=== PATIENT | male | born 1980 | race Caucasian/White ===

== ENCOUNTER 2018-03-20 23:28 | Emergency (ER) | payer BC ==
[2018-03-20] MEDS ORDERED: FLUORESCEIN SODIUM 0.6 MG/WRAP ONE (23:48)
[2018-03-20] MEDS ORDERED: TETRACAINE HCL 0.5% 2ML OPTH ONE (23:48)
[2018-03-20] MEDS ORDERED: HYDROCODONE/APAP 5/325 MG TAB ONE (23:58)
--- NOTE | 2018-03-21 00:02 | ER ---
Nurse's Notes [facility] Name: Wily Steele Age: 37 yrs Sex: Male : 1980 Arrival Date: 03/20/2018 Time: 23:30 Bed 12 Private MD: Diagnosis: Ocular pain, left eye Presentation: 03/20 23:49 Presenting complaint: Patient states: he is a contact lens wearer and started having bb left eye pain yesterday. Transition of care: patient was not received from another setting of care. Mechanism of Injury: No Mechanism of Injury. The patient denies any loss of vision. Onset of symptoms was March 20, 2018. Risk Assessment: Do you want to hurt yourself or someone else? Patient reports no desire to harm self or others. Initial Sepsis Screen: Does the patient meet any 2 criteria? No. Patient's initial sepsis screen is negative. Does the patient have a suspected source of infection? No. Patient's initial sepsis screen is negative. Care prior to arrival: None. 23:49 Method Of Arrival: Ambulatory bb 23:49 Acuity: GALLO 4 bb Historical: - Allergies: 23:50 No Known Allergies; bb - Home Meds: 23:50 None [Active]; bb - PMHx: 23:50 None; bb - PSHx: 23:50 None; bb - Immunization history:: Adult Immunizations up to date. - Social history:: Smoking status: Patient uses tobacco products, smokes one-half pack cigarettes per day, Patient uses alcohol, but reports only rare drinking. Patient/guardian denies using street drugs. - Ebola Screening: : No symptoms or risks identified at this time. Screenin:51 Abuse screen: Denies threats or abuse. Nutritional screening: No deficits noted. bb Tuberculosis screening: No symptoms or risk factors identified. Fall Risk None identified. Assessment: 23:51 General: Appears in no apparent distress. Behavior is calm, cooperative. Pain: bb Complains of pain in left eye Pain currently is 9 out of 10 on a pain scale. Pain began 1 day ago. Neuro: Level of Consciousness is awake, alert, obeys commands, Oriented to person, place, time, situation. Cardiovascular: No deficits noted. Respiratory: Respiratory effort is even, unlabored. EENT: Eyes are tearing on left eye Sclera/Cornea are reddened in left eye. Derm: Skin is pink, warm \T\ dry. Musculoskeletal: Circulation, motion, and sensation intact. 03/21 00:13 Reassessment: Patient appears in no apparent distress at this time. Patient is alert, aa1 oriented x 3, equal unlabored respirations, skin warm/dry/pink. Discussed d/c \T\ f/u instructions with pt \T\ spouse; denies questions or concerns at this time Patient states feeling better. Vital Signs: 03/20 23:50 BP 127 / 65; Pulse 56; Resp 16 S; Temp 98(TE); Pulse Ox 96% on R/A; Weight 86.18 kg bb (R); Height 5 ft. 8 in. (172.72 cm) (R); Pain 9/10; 23:50 Body Mass Index 28.89 (86.18 kg, 172.72 cm) bb Visual Acuity: 23:51 Left Eye Visual acuity 20/200, Pupil size 4 mm, ; Right Eye Pupil size 4 mm, ; Both bb Eyes Visual acuity 20/200; Without Lenses; OD CF ED Course: 23:30 Patient arrived in ED. am2 23:37 Bear Suresh, BLANE is PHCP. pm1 23:37 Jon Lindsay MD is Attending Physician. pm1 23:50 Triage completed. bb 23:50 Arm band placed on Patient placed in an exam room, on a stretcher, on pulse oximetry. bb Family accompanied patient. 23:51 Patient has correct armband on for positive identification. Call light in reach. Adult bb w/ patient. Pulse ox on. NIBP on. 23:51 Assist provider with eye exam of left eye. using fluorescein stain, Performed by mendy Suresh SKIDDER LEVER OPERATOR Patient tolerated well. Patient did not have IV access during this emergency room visit. 03/21 00:00 Constantino Hernandez MD is Referral Physician. pm1 Administered Medications: 03/20 23:48 Drug: Tetracaine Drops 0.5 % 1 drops Route: Ophthalmic; Site: left eye; bb 23:48 Drug: Fluorescein Strip 1 strip Route: Ophthalmic; Site: left eye; bb 23:58 Drug: [place] 5 mg-325 mg 1 tabs Route: PO; aa1 03/21 00:02 Follow up: Response: No adverse reaction; Medication administered at discharge. aa1 00:13 Drug: Gentamicin Drops 0.3 % 2 drops Route: Ophthalmic; Site: left eye; aa1 Outcome: 00:01 Discharge ordered by MD. pm1 00:13 Discharged to home ambulatory, with significant other. aa1 00:13 Condition: good 00:13 Discharge instructions given to patient, significant other, Instructed on discharge instructions, follow up and referral plans. medication usage, Demonstrated understanding of instructions, follow-up care, medications, Prescriptions given X 2. 00:16 Patient left the ED. aa1 Signatures: Carolyn Quinteros RN RN aa1 Salma Palafox RN RN Bear Perez NP SKIDDER LEVER OPERATOR pm1 Anju Somers am2
--- NOTE | 2018-03-21 00:02 | EDPHYS ---
Physician Documentation [facility] Name: Wily Steele Age: 37 yrs Sex: Male : 1980 Arrival Date: 03/20/2018 Time: 23:30 Bed 12 Private MD: ED Physician Jon Lindsay HPI: 03/21 00:00 This 37 yrs old Male presents to ER via Ambulatory with complaints of Left pm1 Eye Pain. 00:00 The patient is experiencing foreign body sensation, pain, redness, caused by dust. pm1 Onset: The symptoms/episode began/occurred today, At work. Duration: the symptoms are continuous. Aggravated by closing eye, Alleviated by opening his eye. Associated signs and symptoms: Pertinent negatives: fever, headache. Patient wears soft contacts. Severity of symptoms: in the emergency department the symptoms are worse. The patient has not experienced similar symptoms in the past. 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 Patient with soft contact lens wearing. tetanus less than 5 years. Historical: - Allergies: 03/20 23:50 No Known Allergies; bb - Home Meds: 23:50 None [Active]; bb - PMHx: 23:50 None; bb - PSHx: 23:50 None; bb - Immunization history:: Adult Immunizations up to date. - Social history:: Smoking status: Patient uses tobacco products, smokes one-half pack cigarettes per day, Patient uses alcohol, but reports only rare drinking. Patient/guardian denies using street drugs. - Ebola Screening: : No symptoms or risks identified at this time. ROS: 03/21 00:00 Constitutional: Negative for fever, chills, and weight loss, ENT: Negative for injury, pm1 pain, and discharge. Neck: Negative for injury, pain, and swelling, Cardiovascular: Negative for chest pain, palpitations, and edema, Respiratory: Negative for shortness of breath, cough, wheezing, and pleuritic chest pain, Abdomen/GI: Negative for abdominal pain, nausea, vomiting, diarrhea, and constipation, Back: Negative for injury and pain, MS/Extremity: Negative for injury and deformity, Skin: Negative for injury, rash, and discoloration, Neuro: Negative for headache, weakness, numbness, tingling, and seizure. Eyes: Positive for foreign body sensation, pain, of the left eye. Exam: 00:00 Constitutional: This is a well developed, well nourished patient who is awake, alert, pm1 and in no acute distress. Head/Face: Normocephalic, atraumatic. 00:00 ENT: Nares patent. No nasal discharge, no septal abnormalities noted. Tympanic membranes are normal and external auditory canals are clear. Oropharynx with no redness, swelling, or masses, exudates, or evidence of obstruction, uvula midline. Mucous membranes moist. Neck: Trachea midline, no thyromegaly or masses palpated, and no cervical lymphadenopathy. Supple, full range of motion without nuchal rigidity, or vertebral point tenderness. No Meningismus. Chest/axilla: Normal chest wall appearance and motion. Nontender with no deformity. No lesions are appreciated. Cardiovascular: Regular rate and rhythm with a normal S1 and S2. No gallops, murmurs, or rubs. Normal PMI, no JVD. No pulse deficits. Respiratory: Lungs have equal breath sounds bilaterally, clear to auscultation and percussion. No rales, rhonchi or wheezes noted. No increased work of breathing, no retractions or nasal flaring. Back: No spinal tenderness. No costovertebral tenderness. Full range of motion. Skin: Warm, dry with normal turgor. Normal color with no rashes, no lesions, and no evidence of cellulitis. MS/ Extremity: Pulses equal, no cyanosis. Neurovascular intact. Full, normal range of motion. 00:00 Eyes: Periorbital structures: appear normal, Pupils: no acute changes, Extraocular movements: intact throughout, Conjunctiva: injected, in the left eye, Corneas: abrasion, is not appreciated, on the left, foreign body, is not appreciated, on the left, a fluorescein strip employed to appreciate the findings, Sclera: no appreciated abnormality, Lids and lashes: appear normal. 00:00 Neuro: Orientation: is normal, Motor: moves all fours. Vital Signs: 03/20 23:50 BP 127 / 65; Pulse 56; Resp 16 S; Temp 98(TE); Pulse Ox 96% on R/A; Weight 86.18 kg bb (R); Height 5 ft. 8 in. (172.72 cm) (R); Pain 9/10; 23:50 Body Mass Index 28.89 (86.18 kg, 172.72 cm) bb Visual Acuity: 23:51 Left Eye Visual acuity 20/200, Pupil size 4 mm, ; Right Eye Pupil size 4 mm, ; Both bb Eyes Visual acuity 20/200; Without Lenses; OD CF MDM: 23:38 Patient medically screened. pm1 23:59 Data reviewed: vital signs. Data interpreted: Pulse oximetry: on room air is 96 %. pm1 Interpretation: normal. Counseling: I had a detailed discussion with the patient and/or guardian regarding: the historical points, exam findings, and any diagnostic results supporting the discharge/admit diagnosis, the need for outpatient follow up, an opthalmologist, to return to the emergency department if symptoms worsen or persist or if there are any questions or concerns that arise at home. 03/20 23:48 Order name: Fluoresene Opth strip; Complete Time: 23:48 bb 03/20 23:48 Order name: Eye Tray; Complete Time: 23:48 bb Administered Medications: 23:48 Drug: Tetracaine Drops 0.5 % 1 drops Route: Ophthalmic; Site: left eye; bb 23:48 Drug: Fluorescein Strip 1 strip Route: Ophthalmic; Site: left eye; bb 23:58 Drug: [place] 5 mg-325 mg 1 tabs Route: PO; aa1 03/21 00:02 Follow up: Response: No adverse reaction; Medication administered at discharge. aa1 00:13 Drug: Gentamicin Drops 0.3 % 2 drops Route: Ophthalmic; Site: left eye; aa1 Disposition: 00:46 Co-signature as Attending Physician, Jon Lindsay MD I agree with the assessment and kdr plan of care. Disposition: 03/21/18 00:01 Discharged to Home. Impression: Ocular pain, left eye. - Condition is Stable. - Discharge Instructions: Eye Foreign Body. - Prescriptions for Gentamicin 0.3 % Ophthalmic Drops - instill 1 drop by OPHTHALMIC route every 4 hours for 7 days; 1 bottle. Tylenol- Codeine #3 300-30 mg Oral Tablet - take 1 tablet by ORAL route every 6 hours As needed; 10 tablet. - Medication Reconciliation Form, Thank You Letter, Antibiotic Education form. - Follow up: Constantino Hernandez MD; When: 2 - 3 days; Reason: Recheck today's complaints, Continuance of care, Re-evaluation by your physician. - Problem is new. - Symptoms have improved. Signatures: Carolyn Quinteros RN RN aa1 Jon Lindsay MD MD kdr Salma Palafox RN RN bb Bear Suresh, BLANE STE[employer] pm1 Corrections: (The following items were deleted from the chart) 00:16 00:01 03/21/2018 00:01 Discharged to Home. Impression: Ocular pain, left eye. Condition aa1 is Stable. Forms are Medication Reconciliation Form, Thank You Letter, Antibiotic Education, Prescription Opioid Use. Follow up: Constantino Hernandez; When: 2 - 3 days; Reason: Recheck today's complaints, Continuance of care, Re-evaluation by your physician. Problem is new. Symptoms have improved. pm1
[2018-03-21] MEDS ORDERED: GENTAMICIN 0.3% OPTH DROP 5ML ONE (00:11)
== END 2018-03-21 00:16 | disposition home or self-care (01) ==
LOC: ER 23:28
DX: H57.12 Ocular pain, left eye (principal); F17.210 Nicotine dependence, cigarettes, uncomplicated
CPT/HCPCS: 99284

== ENCOUNTER 2019-04-01 10:22 | Day surgery (SDC) | payer BC ==
[2019-04-01] MEDS: OXYMETAZOLINE HCL 0.05% 15ML NAS ONE ×4 (10:45→13:58)
[2019-04-01] MEDS ORDERED: Ringers Lactate 1,000 ML IV ONE ×2 (10:52→15:42)
[2019-04-01] MEDS ORDERED: PROPOFOL 200 MG/20 ML VIAL IV ONE ×2 (11:48→14:23)
[2019-04-01] MEDS ORDERED: LIDOCAINE 1% MPF 5 ML VIAL ONE (11:48)
[2019-04-01] MEDS ORDERED: NS 0.9% VIAL 10 ML ONE (11:48)
[2019-04-01] MEDS ORDERED: FENTANYL CITR 250 MCG/5 ML ONE (11:48)
[2019-04-01] MEDS ORDERED: MIDAZOLAM HCL 2 MG/2 ML INJ ONE (11:48)
[2019-04-01] MEDS ORDERED: VECURONIUM 10 MG/VIAL IV ONE (11:48)
[2019-04-01] MEDS ORDERED: LIDOCAINE 1% W/EPI 1:100,000 MDV 20 ML VIAL ONE (11:55)
[2019-04-01] MEDS ORDERED: OXYMETAZOLINE HCL 0.05% 15ML NAS ONE (12:06)
[2019-04-01] MEDS ORDERED: EPINEPHRINE/PF 1 MG/ML AMP ONE (12:06)
[2019-04-01] MEDS ORDERED: LIDOCAINE 1.5% W/EPI AMP 5 ML ONE (12:06)
[2019-04-01] MEDS ORDERED: NA CHLORIDE 0.9% 500 ML ONE (12:06)
[2019-04-01] MEDS ORDERED: FENTANYL CITR 100 MCG/2 ML ONE (14:17)
[2019-04-01] MEDS ORDERED: ESMOLOL HCL 10 ML IV ONE (14:28)
[2019-04-01] MEDS ORDERED: GLYCOPYRROLATE 0.2 MG/ML SYR ONE (15:35)
[2019-04-01] MEDS ORDERED: MEPERIDINE HCL 25 MG/0.5 ML ONE (15:35)
[2019-04-01] MEDS ORDERED: LIDOCAINE 2% MPF 5 ML VIAL ONE (15:35)
[2019-04-01] MEDS ORDERED: KETOROLAC 30 MG/ML INJ ONE (15:36)
[2019-04-01] MEDS ORDERED: NEOSTIGMINE 1 MG/ML -10 ML VIAL ONE (15:36)
[2019-04-01] MEDS ORDERED: ONDANSETRON 4 MG/2 ML VIAL ONE (15:36)
[2019-04-01] MEDS ORDERED: HYDROMORPHONE HCL 1 MG/ML INJ ONE (17:13)
[2019-04-01] MEDS ORDERED: TRAMADOL HCL 50 MG TAB ONE (18:07)
--- NOTE | 2019-04-03 09:51 | OP ---
Date of Procedure: 04/01/2019 Surgeon: Rochelle Eli MD Postoperative Diagnoses: Chronic rhinosinusitis with nasal polyps. Postoperative Diagnoses: Chronic rhinosinusitis with nasal polyps. Procedures: Bilateral nasal endoscopy with maxillary antrostomy, total ethmoidectomy, and frontal si nusotomy with use of CT navigation extradural. Indication For Procedure: Mr. Steele presented with symptoms of chronic rhinosinusitis and underwent in-office nasal endoscopy demonstrating nasal polyps. Post-treatment CT scan demonstrated opacifica tion of the left frontal recess, bilateral anterior and posterior ethmoids, mucosal thickening of the bilateral sphenoids, significant opacification of possible polyp of the right maxillary sinus with l imited involvement of the left maxillary sinus and a moderately severe right septal deviation. Risks , benefits, and alternatives were discussed with the patient and his . They agreed to proceed. Description Of Procedure: The patient was brought to the operating room. He was placed under genera l anesthesia via oral endotracheal tube. The head of bed was turned 90 degrees. The patient's nasal hairs were trimmed and the nasal cavity was packed with Afrin-soaked pledgets. The Glam .fr [place] headpie ce was secured to the patient's forehead and the post-treatment CT scan was loaded to the system. Re gistration was performed. The surface matching with the laser pointer and accuracy was confirmed by [id number]-vr-[id number] matching including the base of the columella, the tip of the nose, and the bilateral m edial and lateral canthi as well as the glabella. Accuracy was felt to be very good. The nasal pled gets were removed and a 0 degree endoscope was used to perform nasal endoscopy. The left middle meat us appeared unremarkable without significant polyp or drainage into the middle meatus. The right braulio e appeared more severely inflamed with obvious small polyps and thick mucoid purulent drainage. The right nasal cavity was significantly narrowed due to right septal deviation and the procedure was ini tiated on the left side. A Gifford was used to medialize the middle turbinate and a maxillary seeker w as used to medialize the uncinate process. A backbiter and 90 degree Blakesley were used to remove t he uncinate process and a backbiter and 90 degree Blakesley was used to enlargen the maxillary antros aguila. Within the maxillary sinus, there was severe inspissated mucus which was very thick and stretc hy. The clinical findings were consistent with allergic fungal sinusitis. The removal of the mucin required extensive amount of time suctioning with curved suction tips as well as forceful irrigation with sterile saline to try to loosen and dislodge the debris from the sinus. After removal of the de bris, the mucosal lining of the maxillary sinus was noted to be moderately thickened and the opening around the sinus was significantly edematous. Attention was then turned to the ethmoid sinuses. The straight and curved navigation suctions were used during the dissection of the ethmoids in order to identify the lamina and skull base and allow safer and more thorough dissection. Ethmoid partitions were divided using the curette and removed with straight, 45, and 90 degree Blakesleys until the ethm oid was well dissected. Identification of the frontal sinus was made and partitions involving the fr ontal recess were removed using the otuzf-re-ngwe and ydkj-iu-lukf Giraffe under 70 degree scope visu alization. Polyps within the sphenoethmoid recess were removed using a 45 degree Blakesley. Overall , the lining of the sinuses was significantly inflamed and intermittent packing of the sinus cavity w ith Afrin soaked pledgets was required to allow for adequate visualization of the sinus cavities. Af ter completion of the left side, evaluation was made on the right. The septum was deviated to the de gree that limited access into the sinus cavities and decision was made to proceed with a septoplasty. The anterior septum was injected with local anesthetic and a left hemitransfixion incision was made . The caudal aspect of this septum was identified and bilateral mucosal flaps were elevated. The po sterior aspect of the cartilaginous septum was incised using a [place] elevator and small portion of c artilage was removed. The deviated bony portion of the septum was then removed using Garett rongeur trimming small pieces as necessary in order to allow for adequate space creation of the right nasal c avity. After removal of a portion of the bone septum, the septal cavity was packed with Afrin-soaked pledgets for several minutes. These were then removed and examination of the right nasal airway rev ealed adequate space. Closure of the septum was deferred. The endoscopic portion of the procedure w as then resumed. The right maxillary antrostomy was created by removal of the uncinate process. Thi ck copious purulent secretions were noted and a culture was collected including aerobic and anaerobic and sent to the lab for micro examination. After creation of the antrostomy with removal of bone an d soft tissue, the right maxillary sinus was visualized using 30 and 70 degree scopes, the lining was noted to be severely edematous and after forceful irrigation, no visible purulence or residual debri s was noted. Attention was then turned to the right ethmoid. The ethmoid partitions were dissected and removed using a curette and Blakesley forceps. The mucosa again was polypoid and edematous. Ove rall findings were worse than the CT in terms of degree of inflammation. After careful dissection in cluding use of the navigation suction for identification of the lamina and the skull base, the fronta l recess was identified and dissected using a 90 degree Giraffe and 70 degree endoscope. The sinus c avities were thoroughly irrigated and suctioned. Decision was made for placement of steroid eluting stents due to the presence of polyps and overall degree of inflammation. A Propel mini was placed in the bilateral frontal recess under endoscopic guidance. A standard Propel was placed in the ethmoid cavity. Attention was then return to the septum. After confirmation of removal of all pledgets and nonabsorbable nasal packing, the septum was closed in running fashion along the hemitransfixion inci mario and mattressing suture was placed. The nasopharynx was suctioned. The patient was returned to care of Anesthesia for awakening and extubation in the operating room, which proceeded without diffic ulty. Complications: None. Disposition: The patient will be discharged home later today and follow up with Dr. Eli in appro ximately 10 to 14 days for evaluation of healing. KATLYN/MIKE Voice ID: [id number] Report ID: [id number]
== END 2019-04-01 18:30 | disposition home or self-care (01) ==
LOC: OR 10:22
PROVIDERS: ATTEND Otolaryngology
PROC: 09BQ8ZZ Excision of Right Maxillary Sinus, Via Natural or Artificial Opening Endoscopic (ICD-10-PCS; 2019-04-01)
PROC: 09BR8ZZ Excision of Left Maxillary Sinus, Via Natural or Artificial Opening Endoscopic (ICD-10-PCS; 2019-04-01)
PROC: 09BS8ZZ Excision of Right Frontal Sinus, Via Natural or Artificial Opening Endoscopic (ICD-10-PCS; 2019-04-01)
PROC: 09BT8ZZ Excision of Left Frontal Sinus, Via Natural or Artificial Opening Endoscopic (ICD-10-PCS; 2019-04-01)
PROC: 09BU8ZZ Excision of Right Ethmoid Sinus, Via Natural or Artificial Opening Endoscopic (ICD-10-PCS; 2019-04-01)
PROC: 8E09XBG Computer Assisted Procedure of Head and Neck Region, With Computerized Tomography (ICD-10-PCS; 2019-04-01)
PROC: 09SM0ZZ Reposition Nasal Septum, Open Approach (ICD-10-PCS; 2019-04-01)
PROC: 8E09XBZ Computer Assisted Procedure of Head and Neck Region (ICD-10-PCS; principal; 2019-04-01 12:00)
PROC: 09BV8ZZ Excision of Left Ethmoid Sinus, Via Natural or Artificial Opening Endoscopic (ICD-10-PCS; 2019-04-01 12:00)
DX: J32.0 Chronic maxillary sinusitis (principal); J32.2 Chronic ethmoidal sinusitis; J32.1 Chronic frontal sinusitis; J33.9 Nasal polyp, unspecified; J34.2 Deviated nasal septum; F17.200 Nicotine dependence, unspecified, uncomplicated
CPT/HCPCS: 88304; 88311; J0171; J1170; J2001; J2175; J2250; J2405; J2704; J2710; J3010

== ENCOUNTER 2019-04-02 04:54 | Emergency (ER) | payer BC ==
--- NOTE | 2019-04-02 05:31 | EDPHYS ---
Physician Documentation [facility] Name: Wily Steele Age: 38 yrs Sex: Male : 1980 Arrival Date: 04/02/2019 Time: 04:57 Bed 5 Private MD: Isaac Gasca ED Physician Daniel Fox HPI: 04/02 05:26 This 38 yrs old Male presents to ER via Ambulatory with complaints of Urinary ana Retention. 05:26 The patient presents with urinary symptoms, unable to void. Onset: The symptoms/episode ana began/occurred yesterday, last night. Modifying factors: The symptoms are alleviated by nothing, the symptoms are aggravated by nothing. Associated signs and symptoms: The patient has no apparent associated signs or symptoms. Severity of symptoms: At their worst the symptoms were mild, moderate, in the emergency department the symptoms are unchanged. The patient has not experienced similar symptoms in the past. Historical: - Allergies: 05:10 No Known Allergies; rr5 - Home Meds: 05:10 None [Active]; rr5 - PMHx: 05:10 None; rr5 - PSHx: 05:10 sinus surgery; deviated septum; rr5 - Immunization history:: Adult Immunizations up to date. - Social history:: Smoking status: Patient/guardian denies using tobacco, Patient/guardian denies using alcohol, street drugs. - Ebola Screening: : Patient negative for fever greater than or equal to 101.5 degrees Fahrenheit, and additional compatible Ebola Virus Disease symptoms Patient denies exposure to infectious person Patient denies travel to an Ebola-affected area in the 21 days before illness onset. - Family history:: not pertinent. ROS: 05:26 Constitutional: Negative for fever, chills, and weight loss, Eyes: Negative for injury, ana pain, redness, and discharge, ENT: Negative for injury, pain, and discharge, Neck: Negative for injury, pain, and swelling, Cardiovascular: Negative for chest pain, palpitations, and edema, Respiratory: Negative for shortness of breath, cough, wheezing, and pleuritic chest pain, Abdomen/GI: Negative for abdominal pain, nausea, vomiting, diarrhea, and constipation, Back: Negative for injury and pain, MS/Extremity: Negative for injury and deformity, Skin: Negative for injury, rash, and discoloration, Neuro: Negative for headache, weakness, numbness, tingling, and seizure, Psych: Negative for depression, anxiety, suicide ideation, homicidal ideation, and hallucinations, Allergy/Immunology: Negative for hives, rash, and allergies, Endocrine: Negative for neck swelling, polydipsia, polyuria, polyphagia, and marked weight changes, Hematologic/Lymphatic: Negative for swollen nodes, abnormal bleeding, and unusual bruising. 05:26 : Positive for small amounts, burning with urination, difficulty urinating. Exam: 05:26 Constitutional: This is a well developed, well nourished patient who is awake, alert, ana and in no acute distress. Head/Face: Normocephalic, atraumatic. Eyes: Pupils equal round and reactive to light, extra-ocular motions intact. Lids and lashes normal. Conjunctiva and sclera are non-icteric and not injected. Cornea within normal limits. Periorbital areas with no swelling, redness, or edema. ENT: Nares patent. No nasal discharge, no septal abnormalities noted. Tympanic membranes are normal and external auditory canals are clear. Oropharynx with no redness, swelling, or masses, exudates, or evidence of obstruction, uvula midline. Mucous membranes moist. Neck: Trachea midline, no thyromegaly or masses palpated, and no cervical lymphadenopathy. Supple, full range of motion without nuchal rigidity, or vertebral point tenderness. No Meningismus. Chest/axilla: Normal chest wall appearance and motion. Nontender with no deformity. No lesions are appreciated. Cardiovascular: Regular rate and rhythm with a normal S1 and S2. No gallops, murmurs, or rubs. Normal PMI, no JVD. No pulse deficits. Respiratory: Lungs have equal breath sounds bilaterally, clear to auscultation and percussion. No rales, rhonchi or wheezes noted. No increased work of breathing, no retractions or nasal flaring. Abdomen/GI: Soft, non-tender, with normal bowel sounds. No distension or tympany. No guarding or rebound. No evidence of tenderness throughout. Back: No spinal tenderness. No costovertebral tenderness. Full range of motion. Male : Normal genitalia with no discharge or lesions. Skin: Warm, dry with normal turgor. Normal color with no rashes, no lesions, and no evidence of cellulitis. Neuro: Awake and alert, GCS 15, oriented to person, place, time, and situation. Cranial nerves II-XII grossly intact. Motor strength 5/5 in all extremities. Sensory grossly intact. Cerebellar exam normal. Normal gait. Psych: Awake, alert, with orientation to person, place and time. Behavior, mood, and affect are within normal limits. 05:26 : CVA tenderness, that is mild, Male external genitalia: normal, Circumcision noted. Bladder: distension. 05:26 Musculoskeletal/extremity: Vital Signs: 05:10 BP 119 / 69; Pulse 85; Resp 19; Temp 98.2; Pulse Ox 97% ; Weight 91.63 kg; Height 5 ft. rr5 9 in. (175.26 cm); 05:10 Pain 5/10; rr5 05:53 BP 119 / 71; Pulse 80; Resp 16; Pulse Ox 99% ; Pain 0/10; rr5 05:10 Body Mass Index 29.83 (91.63 kg, 175.26 cm) rr5 MDM: 05:03 Patient medically screened. [facility] 05:29 Data reviewed: vital signs, nurses notes, lab test result(s). [facility] 04/02 05:26 Order name: Urine Culture [facility] 04/02 05:38 Order name: Urine Dipstick--Ancillary (enter results) [facility] 04/02 05:26 Order name: Urine Dipstick-Ancillary (obtain specimen); Complete Time: 05:42 [facility] 04/02 05:26 Order name: Olivier; Complete Time: 05:42 [facility] 04/02 05:26 Order name: Olivier Leg Bag; Complete Time: 05:42 [facility] Administered Medications: 05:45 Drug: Flomax 0.4 mg Route: PO; rr5 05:54 Follow up: Response: Medication administered at discharge. rr5 05:45 Drug: Cipro 500 mg Route: PO; rr5 05:54 Follow up: Response: Medication administered at discharge. rr5 Disposition: 04/02/19 05:30 Discharged to Home. Impression: Retention of urine, Retention of urine, unspecified. - Condition is Stable. - Discharge Instructions: Olivier Catheter Care, Adult, Acute Urinary Retention, Male, [id number], Olivier Catheter Care, Adult, [id number]. - Prescriptions for Cipro 250 mg Oral Tablet - take 1 tablet by ORAL route every 12 hours; 14 tablet. Flomax 0.4 mg Oral Capsule, Sust. Release 24 hr - take 1 capsule by ORAL route once daily 1/2 hour following the same meal each day; 10 capsule. - Medication Reconciliation Form, Thank You Letter, Antibiotic Education, Prescription Opioid Use form. - Follow up: Isaac Gasca MD; When: 2 - 3 days; Reason: Recheck today's complaints, Continuance of care, Re-evaluation by your physician. Follow up: Gregoria Tsang MD; When: 1 - 2 days; Reason: Recheck today's complaints, Re-evaluation by your physician. - Problem is new. - Symptoms have improved. Signatures: Dispatcher [employer] EDMS Daniel Fox MD MD cha Roque, Raymond, RN RN rr5 Corrections: (The following items were deleted from the chart) 05:54 05:30 04/02/2019 05:30 Discharged to Home. Impression: Retention of urine; Retention of rr5 urine, unspecified. Condition is Stable. Forms are Medication Reconciliation Form, Thank You Letter, Antibiotic Education, Prescription Opioid Use. Follow up: Isaac Gasca; When: 2 - 3 days; Reason: Recheck today's complaints, Continuance of care, Re-evaluation by your physician. Follow up: Gregoria Tsang; When: 1 - 2 days; Reason: Recheck today's complaints, Re-evaluation by your physician. Problem is new. Symptoms have improved. ana
--- NOTE | 2019-04-02 05:31 | ER ---
Nurse's Notes [facility] Name: Wily Steele Age: 38 yrs Sex: Male : 1980 Arrival Date: 04/02/2019 Time: 04:57 Bed 5 Private MD: Isaac Gasca Diagnosis: Retention of urine;Retention of urine, unspecified Presentation: 04/02 05:05 Presenting complaint: Patient states: unable to pee since yesterday started at 1830H up rr5 to now. had a day surgery yesterday for sinus plasty and deviated septum under dr. Eli. 05:05 Transition of care: patient was not received from another setting of care. Onset of rr5 symptoms was April 01, 2019. Risk Assessment: Do you want to hurt yourself or someone else? Patient reports no desire to harm self or others. Initial Sepsis Screen: Does the patient meet any 2 criteria? No. Patient's initial sepsis screen is negative. Does the patient have a suspected source of infection? No. Patient's initial sepsis screen is negative. Care prior to arrival: Medication(s) given: tramadol. 05:05 Method Of Arrival: Ambulatory rr5 05:05 Acuity: GALLO 3 rr5 Triage Assessment: 05:05 General: Appears in no apparent distress. uncomfortable, Behavior is calm, cooperative, rr5 appropriate for age. Historical: - Allergies: 05:10 No Known Allergies; rr5 - Home Meds: 05:10 None [Active]; rr5 - PMHx: 05:10 None; rr5 - PSHx: 05:10 sinus surgery; deviated septum; rr5 - Immunization history:: Adult Immunizations up to date. - Social history:: Smoking status: Patient/guardian denies using tobacco, Patient/guardian denies using alcohol, street drugs. - Ebola Screening: : Patient negative for fever greater than or equal to 101.5 degrees Fahrenheit, and additional compatible Ebola Virus Disease symptoms Patient denies exposure to infectious person Patient denies travel to an Ebola-affected area in the 21 days before illness onset. - Family history:: not pertinent. Screenin:13 Abuse screen: Denies threats or abuse. Denies injuries from another. Nutritional rr5 screening: No deficits noted. Tuberculosis screening: No symptoms or risk factors identified. Fall Risk None identified. Total Aguirre Fall Scale indicates No Risk (0-24 pts). Assessment: 05:05 General: Appears in no apparent distress. uncomfortable, Behavior is calm, cooperative, rr5 appropriate for age. Pain: Complains of pain in supra pubic area Pain does not radiate. Pain currently is 5 out of 10 on a pain scale. Quality of pain is described as aching, Pain began gradually, Is intermittent. 05:05 Neuro: Level of Consciousness is awake, alert, obeys commands, Oriented to person, rr5 place, time, situation, Appropriate for age. Cardiovascular: Capillary refill < 3 seconds Patient's skin is warm and dry. Respiratory: Airway is patent Respiratory effort is even, unlabored, Respiratory pattern is regular, symmetrical. GI: No signs and/or symptoms were reported involving the gastrointestinal system. : Urine is clear, Reports inability to void, since April 01 2019 urgency, since April 01 2019. EENT: post sinus surgery with dressing on his nose noted.. Derm: Skin is intact, Skin temperature is warm. Musculoskeletal: Circulation, motion, and sensation intact. Capillary refill < 3 seconds, Range of motion: intact in all extremities. 05:53 Reassessment: Patient appears in no apparent distress at this time. Patient is alert, rr5 oriented x 3, equal unlabored respirations, skin warm/dry/pink. discharge instruction given and explained without complaints made. Markham catheter care instrcuted Patient states feeling better. Patient states symptoms have improved. Vital Signs: 05:10 BP 119 / 69; Pulse 85; Resp 19; Temp 98.2; Pulse Ox 97% ; Weight 91.63 kg; Height 5 ft. rr5 9 in. (175.26 cm); 05:10 Pain 5/10; rr5 05:53 BP 119 / 71; Pulse 80; Resp 16; Pulse Ox 99% ; Pain 0/10; rr5 05:10 Body Mass Index 29.83 (91.63 kg, 175.26 cm) rr5 ED Course: 04:57 Patient arrived in ED. do 04:57 Isaac Gasca MD is Private Physician. do 05:03 Daniel Fox MD is Attending Physician. ana 05:03 Marvin Poole RN is Primary Nurse. rr5 05:11 Triage completed. rr5 05:12 Arm band placed on. rr5 05:15 Patient has correct armband on for positive identification. Bed in low position. Call rr5 light in reach. 05:20 Bladder scan completed. 280 ml. rr5 05:25 Markham cath inserted, using sterile technique, 16 Fr., by ks, balloon inflated, urine rr5 specimen collected. returned clear yellow urine. Patient tolerated well. changed to leg bag. 05:30 Iasac Gasca MD is Referral Physician. [facility] 05:30 Gregoria Tsang MD is Referral Physician. [facility] 05:43 Bladder scan completed. 39 ml post markham catheter inserted. rr5 05:50 No provider procedures requiring assistance completed. Patient did not have IV access rr5 during this emergency room visit. Administered Medications: 05:45 Drug: Flomax 0.4 mg Route: PO; rr5 05:54 Follow up: Response: Medication administered at discharge. rr5 05:45 Drug: Cipro 500 mg Route: PO; rr5 05:54 Follow up: Response: Medication administered at discharge. rr5 Outcome: 05:30 Discharge ordered by . [facility] 05:50 Discharged to home ambulatory, with family. rr5 05:50 Condition: stable 05:50 Discharge instructions given to patient, family, Instructed on discharge instructions, follow up and referral plans. medication usage, markham catheter care Demonstrated understanding of instructions, follow-up care, medications, Markham catheter care Prescriptions given X 2. 05:54 Patient left the ED. rr5 Signatures: Daniel Fox MD MD cha Ogletree, Marvin France, RN RN rr5
[2019-04-02 05:47] LABS: Urine Blood NEGATIVE (NEG); Urine Glucose NEGATIVE (NEG); Urine Specific Gravity 1.015 (1.005-1.030)
[2019-04-02 05:48] LABS: Urine Protein NEGATIVE (NEG); Urine pH 6.5 (5.0-7.0)
[2019-04-02] MEDS ORDERED: CIPROFLOXACIN HCL 500 MG TAB ONE (06:01)
[2019-04-02] MEDS ORDERED: TAMSULOSIN 0.4 MG SR CAP ONE (06:01)
== END 2019-04-02 05:54 | disposition home or self-care (01) ==
LOC: ER 04:54
DX: R33.9 Retention of urine, unspecified (principal)
CPT/HCPCS: 51702; 81003; 87086; 87088; 99284

== ENCOUNTER 2024-11-03 00:18 | Emergency (ER) | payer BC ==
[2024-11-03] MEDS ORDERED: KETOROLAC 30 MG/ML INJ ONE (00:53)
[2024-11-03] MEDS ORDERED: METHOCARBAMOL 1,000 MG/10 ML VIAL ONE (00:53)
[2024-11-03] MEDS ORDERED: ONDANSETRON 4 MG/2 ML VIAL ONE (00:53)
[2024-11-03] MEDS ORDERED: MORPHINE 4 MG/ML SYR ONE (00:53)
[2024-11-03] MEDS ORDERED: NA CHLORIDE 0.9% 100 ML ONE (00:54)
--- NOTE | 2024-11-03 02:54 | ER ---
Nurse's Notes [facility] Name: Wily Steele Age: 44 yrs Sex: Male : 1980 Arrival Date: 11/03/2024 Time: 00:18 Bed 15 Private MD: Diagnosis: Right Patellar Tendon Rupture , Acute, Initial encounter Presentation: 11/03 00:27 Chief complaint: Patient states: RIGHT KNEE PAIN. WAS WALKING AND HIS KNEE GAVE OUT ON jj7 HIM., HE HEARD A POP. HE CAUGHT HIMSELF BEFORE HE FELL. JUST NEVER FELT THIS PAIN IN HIS KNEE BEFORE. Coronavirus screen: At this time, the client does not indicate any symptoms associated with coronavirus-19. Ebola Screen: No symptoms or risks identified at this time. Initial Sepsis Screen: Does the patient meet any 2 criteria? No. Patient's initial sepsis screen is negative. Does the patient have a suspected source of infection? No. Patient's initial sepsis screen is negative. Risk Assessment: Do you want to hurt yourself or someone else? Patient reports no desire to harm self or others. Onset of symptoms was November 03, 2024. 00:27 Method Of Arrival: EMS: [facility] jj7 00:27 Acuity: GALLO 4 jj7 Triage Assessment: 00:27 General: Appears in no apparent distress. uncomfortable, Behavior is calm, cooperative, jj7 appropriate for age. Pain: Complains of pain in right knee. Musculoskeletal: Reports pain in right knee. Historical: - Allergies: 00:32 No Known Allergies; jj7 - PMHx: 00:32 None; jj7 - PSHx: 00:32 RHINOPLASTY; jj7 - Immunization history:: Adult Immunizations up to date, Flu vaccine is up to date. - Infectious Disease History:: Denies. - Social history:: Smoking status: Patient denies any tobacco usage or history of. Patient uses alcohol, occasionally. Patient/guardian denies using alcohol, street drugs, IV drugs. - Family history:: not pertinent. Screenin:27 [facility] ED Fall Risk Assessment (Adult) History of falling in the last 3 months, jj7 including since admission No falls in past 3 months (0 pts) Confusion or Disorientation No (0 pts) Intoxicated or Sedated No (0 pts) Impaired Gait Yes (1 pt) Mobility Assist Device Used No (0 pt) Altered Elimination No (0 pt) Score/Fall Risk Level 0 - 2 = Low Risk Oriented to surroundings, Maintained a safe environment, Educated pt \T\ family on fall prevention, incl call for assistance when getting out of bed, Assessed \T\ reinforced patient's understanding of fall precautions. Abuse screen: Denies threats or abuse. Nutritional screening: No deficits noted. Tuberculosis screening: No symptoms or risk factors identified. Assessment: 00:27 Reassessment: SEE TRIAGE ASSESSMENT. jj7 Vital Signs: 00:27 BP 113 / 69; Pulse 69; Resp 20; Temp 98.3; Pulse Ox 96% ; Weight 83.91 kg; Height 5 ft. jj7 9 in. ; Pain 5/10; 01:36 BP 118 / 58; Pulse 58; Resp 16; Pulse Ox 100% ; jj7 02:15 BP 112 / 65; Pulse 60; Resp 20; Pulse Ox 97% ; Pain 0/10; jj7 03:04 BP 115 / 68; Pulse 64; Resp 17; Pulse Ox 100% ; Pain 0/10; jj7 00:27 Body Mass Index 27.32 (83.91 kg, 175.26 cm) jj7 00:27 Pain Scale: Adult jj7 02:15 Pain Scale: Adult jj7 03:04 Pain Scale: Adult jj7 [place] Coma Score: 11/04 01:32 Eye Response: spontaneous(4). Motor Response: obeys commands(6). Verbal Response: sp4 oriented(5). Total: 15. ED Course: 11/03 00:23 Patient arrived in ED. lg3 00:26 Arash Vora MD is Attending Physician. sp4 00:26 Mckinley Green RN is Primary Nurse. jj7 00:27 Arm band placed on right wrist. Patient placed in an exam room, on a stretcher. jj7 00:27 Patient has correct armband on for positive identification. Bed in low position. Call jj7 light in reach. Side rails up X2. Adult w/ patient. Provided Education on: Blood Transfusion, USE OF CALL COOPER. 00:32 Triage completed. jj7 01:10 Inserted saline lock: 20 gauge in right antecubital area, using aseptic technique. rk3 Flushed with 10 mL NS. 01:25 Knee Right 3 View XRAY In Process Unspecified. EDMS 02:31 Crutch training done. Knee immobilizer applied on right knee. jj7 02:53 Lamont Burciaga MD is Referral Physician. sp4 03:04 No provider procedures requiring assistance completed. IV discontinued, intact, jj7 bleeding controlled, No redness/swelling at site. Pressure dressing applied. Administered Medications: 01:30 Drug: morphine IVP or IV 8 mg IVP once over 4 mins Route: IVP; Infused Over: 4 mins; jj7 Site: right antecubital; 02:15 Follow up: Response: Marked relief of symptoms; Pain is decreased jj7 01:30 Drug: Ketorolac IVP 30 mg IVP once Route: IVP; Site: right antecubital; jj7 02:14 Follow up: Response: Marked relief of symptoms; Pain is decreased jj7 01:34 Drug: Methocarbamol IVPB 1 grams IVPB once over 1 hrs; (mix in NS 100 mL) Route: IVPB; jj7 Infused Over: 1 hrs; Site: left antecubital; 02:14 Follow up: IV Status: Completed infusion jj7 01:35 Drug: Ondansetron IVP 8 mg IVP once; over 2 minutes Route: IVP; Site: right antecubital;jj7 02:15 Follow up: Response: No adverse reaction jj7 Medication: 00:27 VIS not applicable for this client. jj7 Outcome: 02:54 Discharge ordered by . sp4 03:04 Discharged to home ambulatory, with crutches, with significant other, jj7 03:04 Condition: improved 03:04 Discharge instructions given to patient, Instructed on discharge instructions, follow up and referral plans. Demonstrated understanding of instructions, follow-up care, 03:07 Patient left the ED. jj7 Signatures: Dispatcher [employer] EDMS Francisca Nesbitt RN RN lg3 Mckinley Green RN RN jj7 Arash Vora MD MD sp4 Luis Armando Skelton rk3
--- NOTE | 2024-11-03 02:54 | EDPHYS ---
Physician Documentation [facility] Name: Wily Steele Age: 44 yrs Sex: Male : 1980 Arrival Date: 11/03/2024 Time: 00:18 Bed 15 Private MD: ED Physician Arash Vora HPI: 11/03 00:27 This 44 yrs old Male presents to ER via Unassigned with complaints of Fall sp4 Injury. 11/04 01:28 Patient presents with complaint of acute fall.. sp4 01:29 Complains of moderate to severe right knee pain after a fall. Patient not able to bear sp4 weight to the right lower extremity.. Historical: - Allergies: 11/03 00:32 No Known Allergies; jj7 - PMHx: 00:32 None; jj7 - PSHx: 00:32 RHINOPLASTY; jj7 - Immunization history:: Adult Immunizations up to date, Flu vaccine is up to date. - Infectious Disease History:: Denies. - Social history:: Smoking status: Patient denies any tobacco usage or history of. Patient uses alcohol, occasionally. Patient/guardian denies using alcohol, street drugs, IV drugs. - Family history:: not pertinent. ROS: 11/04 01:32 Constitutional: Negative for fever, chills, and weight loss, positive moderate to sp4 severe right knee pain All other systems are negative, Exam: 01:32 Constitutional: This is a well developed, well nourished patient who is awake, alert, sp4 and in no acute distress. Head/Face: Normocephalic, atraumatic. Eyes: Pupils equal round and reactive to light, extra-ocular motions intact. Lids and lashes normal. Conjunctiva and sclera are not injected. Cornea within normal limits. Periorbital areas with no swelling, redness, or edema. ENT: Nares patent. No nasal discharge, no septal abnormalities noted. Tympanic membranes are normal and external auditory canals are clear. Oropharynx with no redness, swelling, or masses, exudates, or evidence of obstruction, uvula midline. Mucous membranes moist. Neck: Trachea midline, no thyromegaly or masses palpated, and no cervical lymphadenopathy. Supple, full range of motion without nuchal rigidity, or vertebral point tenderness. Chest/axilla: Normal chest wall appearance and motion. Nontender with no deformity. No lesions are appreciated. Cardiovascular: Regular rate and rhythm with a normal S1 and S2. No gallops, murmurs, or rubs. Normal PMI, no JVD. No pulse deficits. Respiratory: Lungs have equal breath sounds bilaterally, clear to auscultation and percussion. No rales, rhonchi or wheezes noted. No increased work of breathing, no retractions or nasal flaring. Abdomen/GI: Soft, with normal bowel sounds. No distension or tympany. No guarding or rebound. No evidence of tenderness throughout. Back: No spinal tenderness. No costovertebral tenderness. Skin: Warm, dry with normal turgor. Normal color with no rashes, no lesions, and no evidence of cellulitis. MS/ Extremity: Pulses equal, no cyanosis. Neurovascular intact. Positive moderate to severe right knee tenderness with high riding patella. Normal peripheral pulses, patient not able to bear weight to right lower extremity. Neuro: Awake and alert, GCS 15, oriented to person, place, time, and situation. Cranial nerves II-XII grossly intact. Motor strength 5/5 in all extremities. Sensory grossly intact. Psych: Awake, alert, with orientation to person, place and time. Behavior, mood, and affect are within normal limits Vital Signs: 11/03 00:27 BP 113 / 69; Pulse 69; Resp 20; Temp 98.3; Pulse Ox 96% ; Weight 83.91 kg; Height 5 ft. j7 9 in. ; Pain 5/10; 01:36 BP 118 / 58; Pulse 58; Resp 16; Pulse Ox 100% ; jj7 02:15 BP 112 / 65; Pulse 60; Resp 20; Pulse Ox 97% ; Pain 0/10; jj7 03:04 BP 115 / 68; Pulse 64; Resp 17; Pulse Ox 100% ; Pain 0/10; jj7 00:27 Body Mass Index 27.32 (83.91 kg, 175.26 cm) 7 00:27 Pain Scale: Adult jj7 02:15 Pain Scale: Adult jj7 03:04 Pain Scale: Adult jj7 Moon Coma Score: 11/04 01:32 Eye Response: spontaneous(4). Motor Response: obeys commands(6). Verbal Response: sp4 oriented(5). Total: 15. Procedures: 01:31 Splinting: Splint applied to right knee using knee immobilizer, applied by myself. sp4 Examined by me, post splint application: neurovascular intact, 2+ distal pulses palpable, brisk capillary refill noted, Patient tolerated well, Crutches were provided. Nonweightbearing for right lower extremity until consultation with orthopedist.. MDM: 11/03 02:54 Medical Screening Exam initiated sp4 11/04 01:30 Differential diagnosis: abrasion, contusion, fracture, multiple trauma, sprain, strain. sp4 Data reviewed: vital signs, nurses notes, EMS record, old medical records, radiologic studies, plain films. 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 COMPARISON: None. FINDINGS: 3 X-ray views of the right knee (frontal, lateral and oblique projections) were performed. Bones: No areas of acute bony injuries were demonstrated. Soft tissues: Very minimal soft tissue thickening inferior prepatellar aspect findings could be related to perhaps trauma an/or bursitis and/or infrapatellar tendon tendinitis. Joints: There is no joint effusion. Others: There are no gross intraosseous lesions. No periosteal reaction were seen. IMPRESSION: No acute bony injuries were demonstrated. Very minimal soft tissue thickening inferior prepatellar aspect findings could be related to perhaps trauma an/or bursitis and/or infrapatellar tendon tendinitis. Electronically signed by: Conrado Adams MD 11/03/2024 03:18 AM [employer] SUPERVISOR. ED course: Patient not able to extend the right leg indicative of inferior patellar tendon rupture. X-ray demonstrates high riding patella. Patient was placed in knee immobilizer. Advised to see Dr. Lamont Burciaga in office for further assessment. 01:32 Consideration of Admission/Observation Escalation of care including sp4 admission/observation considered. 11/03 00:40 Order name: Knee Right 3 View XRAY sp4 11/03 00:39 Order name: Saline Lock; Complete Time: 01:35 sp4 11/03 00:40 Order name: Knee Immobilizer; Complete Time: 02:30 sp4 11/03 00:40 Order name: Crutches; Complete Time: 02:30 sp4 Administered Medications: 11/03 01:30 Drug: morphine IVP or IV 8 mg IVP once over 4 mins Route: IVP; Infused Over: 4 mins; jj7 Site: right antecubital; 02:15 Follow up: Response: Marked relief of symptoms; Pain is decreased jj7 01:30 Drug: Ketorolac IVP 30 mg IVP once Route: IVP; Site: right antecubital; jj7 02:14 Follow up: Response: Marked relief of symptoms; Pain is decreased jj7 01:34 Drug: Methocarbamol IVPB 1 grams IVPB once over 1 hrs; (mix in NS 100 mL) Route: IVPB; jj7 Infused Over: 1 hrs; Site: left antecubital; 02:14 Follow up: IV Status: Completed infusion jj7 01:35 Drug: Ondansetron IVP 8 mg IVP once; over 2 minutes Route: IVP; Site: right antecubital;jj7 02:15 Follow up: Response: No adverse reaction jj7 Disposition Summary: 11/03/24 02:54 Discharge Ordered Notes: Location: Home sp4 Problem: new sp4 Symptoms: have improved sp4 Condition: Stable sp4 Diagnosis - Right Patellar Tendon Rupture , Acute, Initial encounter sp4 Followup: sp4 - With: Lamont Burciaga MD - When: 7 - 10 days - Reason: Recheck today's complaints Discharge Instructions: - Discharge Summary Sheet sp4 - Patellar Tendon Tear sp4 Forms: - Patient Portal Instructions sp4 Prescriptions: - acetaminophen-codeine 300-60 mg Oral tablet - take 1 tablet ORAL route every 8 hours PRN pain; 30 tablet; Refills: 0, Product sp4 Selection Permitted - Ibuprofen 800 mg Oral Tablet - take 1 tablet ORAL route every 8 hours As needed take with food; 30 tablet; sp4 Refills: 0, Product Selection Permitted - methocarbamol 750 mg Oral tablet - take 2 tablets ORAL route every 8 hours for 3 days PRN pain; 60 tablet; sp4 Refills: 0, Product Selection Permitted Signatures: Dispatcher Roberto CarlosHost Mckinley Mckeon RN RN jj7 Arash Vora MD MD sp4
[2024-11-03 05:39] VITALS: TEMP 98.3
[2024-11-03 05:41] VITALS: BP 115/68; O2SAT 100
--- NOTE | 2024-11-03 05:56 | RAD REPORT ---
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 COMPARISON: None. FINDINGS: 3 X-ray views of the right knee (frontal, lateral and oblique projections) were performed. Bones: No areas of acute bony injuries were demonstrated. Soft tissues: Very minimal soft tissue thickening inferior prepatellar aspect findings could be relat ed to perhaps trauma an/or bursitis and/or infrapatellar tendon tendinitis. Joints: There is no joint effusion. Others: There are no gross intraosseous lesions. No periosteal reaction were seen. IMPRESSION: No acute bony injuries were demonstrated. Very minimal soft tissue thickening inferior prepatellar aspect findings could be related to perhaps trauma an/or bursitis and/or infrapatellar tendon tendinitis. Electronically signed by: Conrado Adams MD 11/03/2024 03:18 AM USER EXPERIENCE DESIGNER Due to temporary technical issues with the PACS/Vive Unique reporting system, reports are being deepa d by the in-house radiologist without review as a courtesy to ensure prompt reporting the interpreting radiologist is fully responsible for the content of the report. Transcribed Date/Time: 11/03/2024 5:56 AM
== END 2024-11-03 03:07 | disposition home or self-care (01) ==
LOC: ER 00:18
DX: S76.111A Strain of right quadriceps muscle, fascia and tendon, initial encounter (principal); W18.30XA Fall on same level, unspecified, initial encounter
CPT/HCPCS: 73562; J2405; J2800

== ENCOUNTER 2024-11-09 10:53 | Day surgery (SDC) | payer BC ==
[2024-11-08 15:06] LABS: Absolute Eosinophils 0.3 K/uL (0-0.5); Absolute Lymphocytes (CBC) 1.7 K/uL (0.7-4.9); Absolute Monocytes 0.4 K/uL (0.1-1.3); Absolute Neutrophil 4.1 K/uL (1.8-8.0); Basophils % 0.5 % (0-1.3); Hemoglobin 14.9 g/dL (13.6-17.9); Lymphocytes % 25.3 % (15.3-44.8); MCH 31.4 pg (27.0-35.0); MCHC 34.6 g/dL (32.0-36.0); MCV 90.8 fL (80-100); MPV 9.4 fL (7.6-11.3); Monocytes % 6.7 % (3.3-12.3); Neutrophils % 62.5 % (41.7-73.7); Nucleated Red Blood Cells % 0.1 % (0-0); Platelets 221 thou/uL (152-406); RBC Red Blood Cell Count 4.74 M/uL (4.33-5.43); Red Cell Distribution Width 13.1 % (12.1-15.2)
[2024-11-08 15:20] LABS: Anion Gap 8.2 mEq/L (5.0-15.0); Potassium 4.2 mEq/L (3.5-5.1)
[2024-11-09] MEDS ORDERED: Ringers Lactate 1,000 ML IV ONE (11:11)
[2024-11-09] MEDS ORDERED: dexAMETHasone 10 MG/ML VIAL ONE ×2 (11:46→14:07)
[2024-11-09] MEDS ORDERED: LIDOCAINE 1% MPF 5 ML VIAL ONE (11:46)
[2024-11-09] MEDS ORDERED: EPINEPHRINE 1 MG/ML VIAL ONE (11:47)
[2024-11-09] MEDS ORDERED: MIDAZOLAM HCL 2 MG/2 ML INJ ONE (11:47)
[2024-11-09] MEDS ORDERED: FENTANYL CITR 100 MCG/2 ML ONE (11:47)
[2024-11-09] MEDS ORDERED: BUPIVACAINE 0.5% PF 10 ML VIAL ONE (11:47)
[2024-11-09] MEDS ORDERED: ONDANSETRON 4 MG/2 ML VIAL ONE (13:56)
[2024-11-09] MEDS ORDERED: propofoL 200 MG/20 ML VIAL IV ONE (13:56)
[2024-11-09] MEDS ORDERED: LIDOCAINE 2% MPF 5 ML VIAL ONE (13:56)
[2024-11-09] MEDS: CEFAZOLIN SODIUM 1 GM/VIAL ONE (14:03)
[2024-11-09] MEDS ORDERED: GLYCOPYRROLATE 0.2 MG/ML SYR ONE (14:30)
[2024-11-09] MEDS ORDERED: KETOROLAC 30 MG/ML INJ ONE (15:14)
[2024-11-09 16:07] VITALS: O2SAT 96
[2024-11-09 16:24] VITALS: BP 117/63; TEMP 97.7
[2024-11-09] MEDS: HYDROCODONE/APAP 7.5/325 MG TAB ONE (16:41)
--- NOTE | 2024-11-10 02:01 | OP ---
Date of Procedure: 11/09/2024 Surgeon: Constantine Hammond MD Preoperative Diagnosis: Right patellar ligament rupture. Postoperative Diagnosis: Right patellar ligament rupture. Procedure: Right patellar ligament repair with reestablishment of extensor mechanism. Estimated Blood Loss: Less than 20 cc. Complications: There were no complications. Indications For Operation: Mr. Steele is a 44-year-old gentleman who unfortunately injured his right knee after which had a significant amount of swelling and found that he had inability to extend his knee with significant pain. On physical examination, there was a gap at the inferior pole of the pat valeriano and he was unable to perform a straight leg raise. He did appear to be stable to varus and valg us stress, however, denies any other injury. An MRI was done, which demonstrates a disruption of the patellar ligament off the inferior pole of the patella and risks, benefits, and alternatives of diff erent methods of treating this have been discussed with the patient and family. Plan for repair of t he extensor mechanism is agreed to including risks, benefits, and alternatives. Description Of Procedure: The patient has a block in the holding area and then was brought to the op erating room, where he underwent general anesthesia easily by Anesthesia staff. Following this, a we ll-padded tourniquet was placed on superior right thigh. Right lower extremity was then prepped and draped in usual sterile fashion for the procedure. The knee was then placed on a small triangle, whi ch allowed for mobilization of the patella and palpation. The knee was then slightly bent and the pa tella was placed inferiorly as tourniquet was raised. A standard anterior approach was taken down ca refully through skin only and meticulous hemostasis being maintained using Bovie electrocautery. Thi s leads down to the patella and the inferior pole of patella has an obvious disruption with fairly si gnificant fraying of the most proximal portion of the patellar ligament. There was no fracture seen. Following this, a combination of knife, incision was then used to gently debride retaining as much patellar tendon as viable and also leaving a small envelope anteriorly. After this, a FiberWire was then placed in the patellar tendon from a proximal to distal direction with 2 strands exiting from th e patellar ligament superiorly on both the medial and lateral aspects for total of 4 strands. Follow ing this, a 2-0 drill was carefully drilled from distal to proximal through the patella and 1 limb of the far medial FiberWire was placed through the first hole. This was followed by a more central hol e through which the 2 central stands were placed and the third hole through which the most lateral st rand was placed. A hemostat was then used to remove the strands over the bone to their corresponding strand and the knee was held in extension while the FiberWire was tensioned. It was then bent to en sure that there was no slacking of the repair as it was brought down to the distal pole of patella. Following this, both were then sequentially tied. The knee was then brought to at least 70 degrees o f flexion with no problems with patellar tracking or with any gapping of the repair. After this, hea vy Vicryl suture was then placed along the horizontal region to help establish soft tissues. After t his, it was irrigated and the skin was closed using 2-0 Vicryl sutures followed by ninoska. The mickey ent was then placed in a very well-padded sterile dressing as well as a posterior slab and knee immob ilizer and taken to recovery room in good condition. No complications. SE/MODL Voice ID: [id number] Report ID: [id number]
== END 2024-11-09 17:04 | disposition home or self-care (01) ==
LOC: OR 10:53
PROVIDERS: ATTEND Orthopaedic Surgery
PROC: 0MQN0ZZ Repair Right Knee Bursa and Ligament, Open Approach (ICD-10-PCS; 2024-11-09)
PROC: 0MQN0ZZ Repair Right Knee Bursa and Ligament, Open Approach (ICD-10-PCS; principal; 2024-11-09 14:03)
DX: S83.511A Sprain of anterior cruciate ligament of right knee, initial encounter (principal)
CPT/HCPCS: 93005; 85025; 80048; 36415; 27422; J2704; J2003 ×2; J2250; J3010; J1100 ×2; J0171; J2405; J7120; J0690